=== PATIENT | female | born 1970 | race Asian ===

== ENCOUNTER 2022-09-03 03:57 | Emergency (ER) | payer OTHER ==
[2022-09-03 04:09] VITALS: BP 130/76; PULSE 81; RESP 18; TEMP 97.9; BMI 20.7
== END 2022-09-03 04:24 | disposition home or self-care (01) ==
LOC: FER 03:57
DX: R06.02 Shortness of breath (principal); R42 Dizziness and giddiness; F41.9 Anxiety disorder, unspecified; F12.90 Cannabis use, unspecified, uncomplicated
CPT/HCPCS: 99283-25